=== PATIENT | female | born 1945 | race Caucasian/White ===

== ENCOUNTER 2019-01-16 10:24 | Observation (INO) ==
[2019-01-16] MEDS ORDERED: GLUCAGON 1 MG VIAL IM PRN (11:05)
[2019-01-16] MEDS ORDERED: DEXTROSE 50% 25 GM/50 ML VIAL IV PRN (11:05)
[2019-01-16] MEDS ORDERED: ONDANSETRON 4 MG/2 ML VIAL IV PRN (11:05)
[2019-01-16] MEDS ORDERED: ACETAMINOPHEN 325 MG TABLET PO PRN (11:05)
[2019-01-16] MEDS: SODIUM CHLORIDE 0.45% 1,000 ML IV SCH (12:01)
[2019-01-16] MEDS: OXYBUTYNIN 5 MG TABLET PO SCH ×2 (16:17→23:00)
[2019-01-16] MEDS: INSULIN LISPRO 100 UNIT/ML SUBCUT SCH (16:18)
[2019-01-16] MEDS: traMADol 50 MG TABLET PO PRN (19:53)
[2019-01-16] MEDS ORDERED: INSULIN NPH/REGULAR 70/30 100 UNIT/ML SUBCUT SCH (21:00)
[2019-01-16] MEDS: CARBIDOPA/LEVODOPA 25-100 MG TABLET PO SCH (22:58)
[2019-01-16] MEDS: MAGNESIUM CHLORIDE 64 MG TABLET PO SCH (22:58)
[2019-01-16] MEDS: LOSARTAN/HCTZ 50-12.5 MG TABLET PO SCH (22:58)
[2019-01-16] MEDS: DOCUSATE SODIUM 100 MG CAPSULE PO SCH (22:59)
[2019-01-16] MEDS: buPROPion SR 150 MG TABLET PO SCH (22:59)
[2019-01-16] MEDS: diphenhydrAMINE CAP 50 MG CAPSULE PO SCH (22:59)
[2019-01-16] MEDS: APIXABAN 5 MG TABLET PO SCH (22:59)
[2019-01-16] MEDS: CARVEDILOL 25 MG TABLET PO SCH (22:59)
[2019-01-16] MEDS: INSULIN GLARGINE 100 UNIT/ML SUBCUT SCH (23:09)
[2019-01-17 05:18] LABS: Basophils % 0.4 % (0.0-0.8); Eosinophils # 0.2 10*3/uL (0.0-0.87); Eosinophils % 3.3 % (0.00-10.9); Hematocrit 30.4 VOL% (35.7-47.0); Hemoglobin 9.8 GM/DL (12.0-16.0); Immature Granulocytes % 0.2 %; Immature Granulocytes Absolute 0.01 #; Lymphocytes # 0.6 10*3/uL (1.4-4.0); Lymphocytes % 12.3 % (21.3-54.2); Mean Corpuscular HGB Conc 32.2 GM/DL (32-36); Mean Corpuscular Volume 96.2 FL (87-102); Mean Platelet Volume 9.5 FL (9.6-12.0); Monocytes % 7.6 % (1.7-12.7); Neutrophils % 76.2 % (38.7-73.9); Platelet Count 168 T/CUMM (130-400); Red Blood Count 3.16 MC/CUMM (3.8-5.5); Red Cell Distribution Width 15.9 % (9.3-17.3); White Blood Count 5.1 T/CUMM (4-12)
[2019-01-17 05:46] LABS: Thyroid Stimulating Hormone 2.79 uIU/ml (0.358-3.74)
[2019-01-17 06:34] LABS: Alanine Aminotransferase < 6 U/L (13-56); Albumin 3.1 G/DL (3.4-5.0); Alkaline Phosphatase 77 U/L (45-117); Aspartate Amino Transferase 13 U/L (0-37); Blood Urea Nitrogen 18 MG/DL (7-18); Calcium 9.2 MG/DL (8.5-10.1); Glucose 112 MG/DL (74-106); Osmolality,Calculated 281.4 MOS/KG (273-304); Total Protein 6.3 G/DL (6.4-8.3)
[2019-01-17] MEDS: INSULIN LISPRO 100 UNIT/ML SUBCUT SCH (08:06)
[2019-01-17] MEDS: traMADol 50 MG TABLET PO PRN ×2 (08:37→21:50)
[2019-01-17] MEDS: APIXABAN 5 MG TABLET PO SCH ×2 (08:38→20:37)
[2019-01-17] MEDS: DOCUSATE SODIUM 100 MG CAPSULE PO SCH ×2 (08:38→20:37)
[2019-01-17] MEDS: LEVOTHYROXINE 88 MCG TABLET PO SCH (08:38)
[2019-01-17] MEDS: CARVEDILOL 25 MG TABLET PO SCH ×2 (08:38→20:38)
[2019-01-17] MEDS: FUROSEMIDE 40 MG TABLET PO SCH (08:39)
[2019-01-17] MEDS: PANTOPRAZOLE 40 MG TABLET PO SCH (08:39)
[2019-01-17] MEDS: OXYBUTYNIN 5 MG TABLET PO SCH ×3 (08:39→20:37)
[2019-01-17] MEDS: MAGNESIUM CHLORIDE 64 MG TABLET PO SCH ×2 (08:39→20:36)
[2019-01-17] MEDS: ASPIRIN EC 81 MG TABLET PO SCH (08:40)
[2019-01-17] MEDS: LOSARTAN/HCTZ 50-12.5 MG TABLET PO SCH ×2 (08:40→20:36)
[2019-01-17] MEDS: SODIUM CHLORIDE 0.45% 1,000 ML IV SCH (08:41)
[2019-01-17] MEDS: buPROPion SR 150 MG TABLET PO SCH ×2 (08:51→20:37)
[2019-01-17] MEDS: INSULIN REGULAR 100 UNIT/ML SUBCUT SCH ×3 (11:41→21:52)
[2019-01-17] MEDS ORDERED: MAGNESIUM SULF RIDER 2 GM in PREMIX 1 EACH IV ONE (12:31)
[2019-01-17 13:46] LABS: Apearance,Urine CLEAR (Clear); Bacteria,Urine Occasional /HPF (Few); Bilirubin,Urine Negative (Negative); Blood, Urine Negative (Negative); Glucose,Urine (UA) Negative (Negative); Ketones,Urine Negative (Negative); Nitrite,Urine Negative (Negative); Protein,Urine Negative; Squamous Epithelial Cell,Urine Occasional /HPF (0-10); Urine Color Straw (Yellow); Urine Specific Gravity 1.005 (1.001-1.035); Urine Urobilinogen < 2.0 EU/DL (0.2-1.0); WBC,Urine <1 /HPF (0-6)
[2019-01-17] MEDS: POTASSIUM CHLORIDE INJ 20 MEQ, MAGNESIUM SULF INJ 2 GM in SODIUM CHLORIDE 0.45% 1,000 ML IV SCH (15:20)
[2019-01-17] MEDS: CARBIDOPA/LEVODOPA 25-100 MG TABLET PO SCH (20:37)
[2019-01-17] MEDS: diphenhydrAMINE CAP 50 MG CAPSULE PO SCH (20:38)
[2019-01-17] MEDS: INSULIN GLARGINE 100 UNIT/ML SUBCUT SCH (21:26)
[2019-01-18] MEDS: POTASSIUM CHLORIDE INJ 20 MEQ, MAGNESIUM SULF INJ 2 GM in SODIUM CHLORIDE 0.45% 1,000 ML IV SCH ×2 (05:34→18:17)
[2019-01-18 05:57] LABS: Basophils % 0.9 % (0.0-0.8); Eosinophils # 0.2 10*3/uL (0.0-0.87); Eosinophils % 4.2 % (0.00-10.9); Hematocrit 34.6 VOL% (35.7-47.0); Hemoglobin 10.8 GM/DL (12.0-16.0); Immature Granulocytes % 0.4 %; Immature Granulocytes Absolute 0.02 #; Lymphocytes # 0.7 10*3/uL (1.4-4.0); Lymphocytes % 15.8 % (21.3-54.2); Mean Corpuscular HGB Conc 31.2 GM/DL (32-36); Mean Corpuscular Volume 96.9 FL (87-102); Mean Platelet Volume 9.4 FL (9.6-12.0); Monocytes % 6.8 % (1.7-12.7); Neutrophils % 71.9 % (38.7-73.9); Platelet Count 178 T/CUMM (130-400); Red Blood Count 3.57 MC/CUMM (3.8-5.5); Red Cell Distribution Width 15.9 % (9.3-17.3); White Blood Count 4.6 T/CUMM (4-12)
[2019-01-18 06:10] LABS: Alanine Aminotransferase < 6 U/L (13-56); Albumin 3.3 G/DL (3.4-5.0); Alkaline Phosphatase 83 U/L (45-117); Aspartate Amino Transferase 13 U/L (0-37); Blood Urea Nitrogen 17 MG/DL (7-18); Calcium 9.3 MG/DL (8.5-10.1); Glucose 102 MG/DL (74-106); Osmolality,Calculated 284.1 MOS/KG (273-304); Total Protein 6.8 G/DL (6.4-8.3)
[2019-01-18] MEDS: PANTOPRAZOLE 40 MG TABLET PO SCH (08:55)
[2019-01-18] MEDS: LEVOTHYROXINE 88 MCG TABLET PO SCH (08:55)
[2019-01-18] MEDS: ASPIRIN EC 81 MG TABLET PO SCH (08:55)
[2019-01-18] MEDS: FUROSEMIDE 40 MG TABLET PO SCH (08:55)
[2019-01-18] MEDS: APIXABAN 5 MG TABLET PO SCH ×2 (08:56→21:21)
[2019-01-18] MEDS: buPROPion SR 150 MG TABLET PO SCH ×2 (08:56→21:20)
[2019-01-18] MEDS: OXYBUTYNIN 5 MG TABLET PO SCH ×3 (08:56→21:20)
[2019-01-18] MEDS: CARVEDILOL 25 MG TABLET PO SCH ×2 (08:56→21:22)
[2019-01-18] MEDS: LOSARTAN/HCTZ 50-12.5 MG TABLET PO SCH ×2 (08:56→21:22)
[2019-01-18] MEDS: DOCUSATE SODIUM 100 MG CAPSULE PO SCH ×2 (08:56→21:21)
[2019-01-18] MEDS: INSULIN REGULAR 100 UNIT/ML SUBCUT SCH ×4 (10:10→23:32)
[2019-01-18] MEDS: CARBIDOPA/LEVODOPA 25-100 MG TABLET PO SCH (21:20)
[2019-01-18] MEDS: diphenhydrAMINE CAP 50 MG CAPSULE PO SCH (21:20)
[2019-01-18] MEDS: KETOCONAZOLE 2% CREAM 30 GM TUBE TOP SCH (21:22)
[2019-01-18] MEDS: NYSTATIN POWDER 15 GM BOTTLE TOP SCH (21:23)
[2019-01-18] MEDS: INSULIN GLARGINE 100 UNIT/ML SUBCUT SCH (21:33)
[2019-01-19 05:56] LABS: Basophils % 0.6 % (0.0-0.8); Eosinophils # 0.2 10*3/uL (0.0-0.87); Hematocrit 33.1 VOL% (35.7-47.0); Hemoglobin 10.4 GM/DL (12.0-16.0); Immature Granulocytes % 0.4 %; Immature Granulocytes Absolute 0.02 #; Lymphocytes # 0.6 10*3/uL (1.4-4.0); Lymphocytes % 11.1 % (21.3-54.2); Mean Corpuscular HGB Conc 31.4 GM/DL (32-36); Mean Corpuscular Volume 97.6 FL (87-102); Mean Platelet Volume 9.9 FL (9.6-12.0); Monocytes % 6.4 % (1.7-12.7); Neutrophils % 77.5 % (38.7-73.9); Platelet Count 139 T/CUMM (130-400); Red Blood Count 3.39 MC/CUMM (3.8-5.5); Red Cell Distribution Width 15.9 % (9.3-17.3)
[2019-01-19 06:37] LABS: Calcium 9.2 MG/DL (8.5-10.1)
[2019-01-19] MEDS ORDERED: SODIUM CHLOR 0.45% KCL 20 MEQ 20 MEQ/1,000 ML BAG IV SCH (09:00)
[2019-01-19] MEDS: INSULIN REGULAR 100 UNIT/ML SUBCUT SCH ×3 (09:32→16:42)
[2019-01-19] MEDS: KETOCONAZOLE 2% CREAM 30 GM TUBE TOP SCH (09:33)
[2019-01-19] MEDS: NYSTATIN POWDER 15 GM BOTTLE TOP SCH (09:33)
[2019-01-19] MEDS: CARVEDILOL 25 MG TABLET PO SCH (09:33)
[2019-01-19] MEDS: buPROPion SR 150 MG TABLET PO SCH (09:34)
[2019-01-19] MEDS: OXYBUTYNIN 5 MG TABLET PO SCH ×2 (09:34→15:00)
[2019-01-19] MEDS: LOSARTAN/HCTZ 50-12.5 MG TABLET PO SCH (09:34)
[2019-01-19] MEDS: FUROSEMIDE 40 MG TABLET PO SCH (09:34)
[2019-01-19] MEDS: APIXABAN 5 MG TABLET PO SCH (09:34)
[2019-01-19] MEDS: ASPIRIN EC 81 MG TABLET PO SCH (09:35)
[2019-01-19] MEDS: LEVOTHYROXINE 88 MCG TABLET PO SCH (09:35)
[2019-01-19] MEDS: DOCUSATE SODIUM 100 MG CAPSULE PO SCH (09:35)
[2019-01-19] MEDS: PANTOPRAZOLE 40 MG TABLET PO SCH (09:35)
[2019-01-19] MEDS: POTASSIUM CHLORIDE INJ 20 MEQ, MAGNESIUM SULF INJ 2 GM in SODIUM CHLORIDE 0.45% 1,000 ML IV SCH (09:43)
[2019-01-19 15:55] VITALS: BP 123/80
== END 2019-01-19 18:06 | disposition home or self-care (01) ==
LOC: EDBD → EDUNIT# → N.ED 10:24 → SUATTDRO 11:05 → INTOOBSV 11:05 → N.EDINP 11:05 → N.2E 11:45
PROVIDERS: ADMIT Family Medicine; ATTEND Family Medicine

== ENCOUNTER 2021-01-23 14:40 | Inpatient (IN) ==
[2021-01-23 15:45] LABS: Basophils % 0.2 % (0.0-0.8); Hematocrit 32.2 VOL% (35.7-47.0); Hemoglobin 9.7 GM/DL (12.0-16.0); Immature Granulocytes % 0.5 %; Immature Granulocytes Absolute 0.02 #; Lymphocytes # 0.4 10*3/uL (1.4-4.0); Lymphocytes % 9.5 % (21.3-54.2); Mean Corpuscular HGB Conc 30.1 GM/DL (32-36); Mean Platelet Volume 9.3 FL (9.6-12.0); Monocytes % 6.4 % (1.7-12.7); Neutrophils % 82.4 % (38.7-73.9); Platelet Count 150 T/CUMM (130-400); Red Blood Count 3.62 MC/CUMM (3.8-5.5); Red Cell Distribution Width 16.4 % (9.3-17.3); White Blood Count 4.1 T/CUMM (4-12)
[2021-01-23 16:12] LABS: Bilirubin,Urine Negative (Negative); Blood, Urine Negative (Negative); Glucose,Urine (UA) Negative (Negative); Hyaline Casts,Urine 3 /LPF (0-3); Ketones,Urine Negative (Negative); Mucus,Urine Occasional /LPF (Occasional); Nitrite,Urine Negative (Negative); Protein,Urine Negative; RBC,Urine <1 /HPF (0-4); Squamous Epithelial Cell,Urine Occasional /HPF (0-10); Urine Appearance CLEAR (Clear); Urine Color Yellow (Yellow); Urine Specific Gravity 1.019 (1.001-1.035)
[2021-01-23 16:12] LABS: Alanine Aminotransferase 18 U/L (13-56); Albumin 3.1 G/DL (3.4-5.0); Alkaline Phosphatase 75 U/L (45-117); Aspartate Amino Transferase 18 U/L (0-37); Bilirubin,Total < 0.39 MG/DL (0.20-1.00); Blood Urea Nitrogen 17 MG/DL (7-18); Calcium 8.3 MG/DL (8.5-10.1); Carbon Dioxide 33 MMOL/L (21-32); Estimated Glom Filtration Rate 58 ML/MIN; Glucose 104 MG/DL (74-106); Osmolality,Calculated 278.5 MOS/KG (273-304); Potassium 3.2 MMOL/L (3.5-5.1); Sodium 139 MMOL/L (136-145); Total Protein 6.9 G/DL (6.4-8.2)
[2021-01-23] MEDS ORDERED: ALBUTEROL/IPRATROPIUM 3 ML NEB RESP TX STA (17:06)
[2021-01-23] MEDS ORDERED: ONDANSETRON 4 MG/2 ML VIAL IV PRN (18:12)
[2021-01-23] MEDS ORDERED: ACETAMINOPHEN 325 MG TABLET PO PRN (18:12)
[2021-01-23] MEDS ORDERED: GLUCAGON 1 MG VIAL IM PRN ×2 (18:12)
[2021-01-23] MEDS ORDERED: DEXTROSE 50% 25 GM/50 ML VIAL IV PRN ×2 (18:12)
[2021-01-23] MEDS ORDERED: POTASSIUM CHLORIDE 20 MEQ TABLET PO ONE (18:17)
[2021-01-23] MEDS ORDERED: ENOXAPARIN 30 MG/0.3 ML SYRINGE SUBCUT SCH (18:30)
[2021-01-23] MEDS: INSULIN LISPRO 100 UNIT/ML SUBCUT SCH (23:00)
[2021-01-23] MEDS ORDERED: OLANZapine 5 MG TABLET PO SCH (23:00)
[2021-01-23] MEDS ORDERED: traZODone 50 MG TABLET PO SCH (23:00)
[2021-01-23] MEDS: ALBUTEROL/IPRATROPIUM 3 ML NEB RESP TX SCH ×2 (23:41→23:42)
[2021-01-23] MEDS: LORazepam 1 MG TABLET PO SCH (23:45)
[2021-01-24] MEDS: ALBUTEROL/IPRATROPIUM 3 ML NEB RESP TX SCH ×4 (00:07→23:33)
[2021-01-24 04:15] LABS: Basophils % 0.4 % (0.0-0.8); Eosinophils # 0.1 10*3/uL (0.0-0.87); Eosinophils % 1.3 % (0.00-10.9); Hematocrit 31.3 VOL% (35.7-47.0); Hemoglobin 9.4 GM/DL (12.0-16.0); Immature Granulocytes % 0.2 %; Immature Granulocytes Absolute 0.01 #; Lymphocytes # 0.6 10*3/uL (1.4-4.0); Lymphocytes % 13.3 % (21.3-54.2); Mean Corpuscular Volume 89.4 FL (87-102); Mean Platelet Volume 9.5 FL (9.6-12.0); Monocytes % 6.2 % (1.7-12.7); Neutrophils % 78.6 % (38.7-73.9); Platelet Count 145 T/CUMM (130-400); Red Cell Distribution Width 16.8 % (9.3-17.3); White Blood Count 4.5 T/CUMM (4-12)
[2021-01-24 04:45] LABS: Calcium 8.4 MG/DL (8.5-10.1)
[2021-01-24 04:53] LABS: Osmolality,Calculated 280.4 MOS/KG (273-304)
[2021-01-24] MEDS ORDERED: traMADol 50 MG TABLET PO PRN (08:25)
[2021-01-24] MEDS: INSULIN LISPRO 100 UNIT/ML SUBCUT SCH ×4 (09:17→21:02)
[2021-01-24] MEDS: LORazepam 1 MG TABLET PO SCH ×3 (11:38→21:02)
[2021-01-24] MEDS: ATORVASTATIN 80 MG TABLET PO SCH ×2 (11:39→15:47)
[2021-01-24] MEDS: LOSARTAN 50 MG TABLET PO SCH ×2 (11:39→15:46)
[2021-01-24] MEDS: APIXABAN 2.5 MG TABLET PO SCH ×3 (11:39→21:02)
[2021-01-24] MEDS: AZITHROMYCIN 250 MG TABLET PO ONE ×2 (11:39→15:47)
[2021-01-24] MEDS: METOPROLOL SUCCINATE XL 25 MG TABLET PO SCH ×3 (11:39→21:02)
[2021-01-24] MEDS: SODIUM CHLOR 0.45% KCL 20 MEQ 20 MEQ/1,000 ML BAG IV SCH (11:40)
[2021-01-24] MEDS: cefTRIAXone 1,000 MG in SODIUM CHLORIDE 0.9% 100 ML IV SCH (11:43)
[2021-01-24] MEDS: POTASSIUM CHLORIDE RIDER 10 MEQ/100 ML PREMIX IV SCH ×5 (12:55→21:00)
[2021-01-24] MEDS ORDERED: methylPREDNISolone ACETATE 80 MG/1 ML VIAL IM ONE (15:43)
[2021-01-24] MEDS: methylPREDNISolone SOD SUC 40 MG/1 ML VIAL IV SCH (21:01)
[2021-01-24] MEDS: BENZONATATE 100 MG CAPSULE PO PRN (21:01)
[2021-01-24] MEDS: OLANZapine 5 MG TABLET PO SCH (21:01)
[2021-01-24] MEDS: LATANOPROST 0.005% OPH SOLN 2.5 ML BOTTLE BOTH EYES SCH (21:02)
[2021-01-24] MEDS: hydroCHLOROthiazide 12.5 MG CAPSULE PO SCH (21:02)
[2021-01-24] MEDS: traZODone 50 MG TABLET PO SCH (21:02)
[2021-01-24] MEDS: CARBIDOPA/LEVODOPA 25-100 MG TABLET PO SCH (21:02)
[2021-01-24] MEDS ORDERED: HALOPERIDOL 5 MG/ML AMP IM ONE (22:20)
[2021-01-24] MEDS ORDERED: HALOPERIDOL 5 MG/ML AMP IV ONE (22:57)
[2021-01-25] MEDS: LORazepam 1 MG TABLET PO SCH ×4 (00:50→21:56)
[2021-01-25] MEDS: OLANZapine 5 MG TABLET PO SCH ×4 (00:51→21:56)
[2021-01-25] MEDS: LATANOPROST 0.005% OPH SOLN 2.5 ML BOTTLE BOTH EYES SCH ×2 (00:51→22:11)
[2021-01-25] MEDS: METOPROLOL SUCCINATE XL 25 MG TABLET PO SCH ×4 (00:51→21:59)
[2021-01-25] MEDS: APIXABAN 2.5 MG TABLET PO SCH ×4 (00:51→21:59)
[2021-01-25] MEDS: traZODone 50 MG TABLET PO SCH ×2 (00:51→21:59)
[2021-01-25] MEDS: CARBIDOPA/LEVODOPA 25-100 MG TABLET PO SCH ×2 (00:51→21:59)
[2021-01-25] MEDS: hydroCHLOROthiazide 12.5 MG CAPSULE PO SCH ×4 (00:51→21:59)
[2021-01-25] MEDS: POTASSIUM CHLORIDE RIDER 10 MEQ/100 ML PREMIX IV SCH (01:09)
[2021-01-25] MEDS: ALBUTEROL/IPRATROPIUM 3 ML NEB RESP TX SCH ×6 (03:30→20:53)
[2021-01-25 05:49] LABS: Basophils % 0.3 % (0.0-0.8); Hematocrit 31.1 VOL% (35.7-47.0); Hemoglobin 9.5 GM/DL (12.0-16.0); Immature Granulocytes % 1.3 %; Immature Granulocytes Absolute 0.05 #; Lymphocytes # 0.2 10*3/uL (1.4-4.0); Lymphocytes % 5.9 % (21.3-54.2); Mean Corpuscular HGB Conc 30.5 GM/DL (32-36); Mean Corpuscular Volume 88.6 FL (87-102); Mean Platelet Volume 10.1 FL (9.6-12.0); Monocytes % 2.3 % (1.7-12.7); Neutrophils % 90.2 % (38.7-73.9); Platelet Count 133 T/CUMM (130-400); Red Blood Count 3.51 MC/CUMM (3.8-5.5); Red Cell Distribution Width 16.4 % (9.3-17.3); White Blood Count 3.9 T/CUMM (4-12)
[2021-01-25] MEDS: LEVOTHYROXINE 88 MCG TABLET PO SCH (05:54)
[2021-01-25 06:05] LABS: Albumin 2.7 G/DL (3.4-5.0); Bilirubin,Total 0.4 MG/DL (0.20-1.00); Calcium 8.8 MG/DL (8.5-10.1); Osmolality,Calculated 270.2 MOS/KG (273-304); Potassium 4.4 MMOL/L (3.5-5.1); Total Protein 6.4 G/DL (6.4-8.2)
[2021-01-25 06:09] LABS: Ferritin 697.7 ng/ml (8-252)
[2021-01-25 07:22] LABS: Band Neutrophils 9 % (0-10); Lymphocytes 4 % (20-55); Nucleated Red Blood Cells 1 (0-5); Segmented Neutrophils 83 % (50-85); Total Cells Counted 100
[2021-01-25 07:23] LABS: Hypochromasia 1+; Microcytosis 1+; Ovalocytes Few; Platelet Estimate Adequate
[2021-01-25] MEDS ORDERED: MAGNESIUM SULF RIDER 2 GM/50 ML PREMIX IV ONE (09:00)
[2021-01-25] MEDS: cefTRIAXone 1,000 MG in SODIUM CHLORIDE 0.9% 100 ML IV SCH (10:10)
[2021-01-25] MEDS: INSULIN LISPRO 100 UNIT/ML SUBCUT SCH ×4 (10:15→22:11)
[2021-01-25] MEDS: methylPREDNISolone SOD SUC 40 MG/1 ML VIAL IV SCH ×2 (10:17→22:11)
[2021-01-25] MEDS: ATORVASTATIN 80 MG TABLET PO SCH ×2 (10:18→10:59)
[2021-01-25] MEDS: LOSARTAN 50 MG TABLET PO SCH ×2 (10:18→10:58)
[2021-01-25] MEDS: AZITHROMYCIN 250 MG TABLET PO SCH ×2 (10:20→10:59)
[2021-01-25] MEDS: SODIUM CHLOR 0.45% KCL 20 MEQ 20 MEQ/1,000 ML BAG IV SCH ×2 (19:22→19:25)
[2021-01-25] MEDS ORDERED: HALOPERIDOL 5 MG/ML AMP IM PRN (20:51)
[2021-01-25] MEDS: BENZONATATE 100 MG CAPSULE PO PRN (21:59)
[2021-01-26] MEDS: SODIUM CHLOR 0.45% KCL 20 MEQ 20 MEQ/1,000 ML BAG IV SCH ×4 (00:28→16:56)
[2021-01-26] MEDS: ALBUTEROL/IPRATROPIUM 3 ML NEB RESP TX SCH ×7 (00:59→23:20)
[2021-01-26 05:02] LABS: Basophils % 0.2 % (0.0-0.8); Hematocrit 30.1 VOL% (35.7-47.0); Hemoglobin 8.9 GM/DL (12.0-16.0); Immature Granulocytes % 1.5 %; Immature Granulocytes Absolute 0.07 #; Lymphocytes # 0.4 10*3/uL (1.4-4.0); Lymphocytes % 7.7 % (21.3-54.2); Mean Corpuscular HGB Conc 29.6 GM/DL (32-36); Mean Corpuscular Volume 88.5 FL (87-102); Mean Platelet Volume 9.6 FL (9.6-12.0); Monocytes % 2.4 % (1.7-12.7); Neutrophils % 88.2 % (38.7-73.9); Platelet Count 152 T/CUMM (130-400); White Blood Count 4.5 T/CUMM (4-12)
[2021-01-26 05:22] LABS: Hypochromasia 1+; Microcytosis 1+
[2021-01-26 05:23] LABS: Platelet Estimate Adequate
[2021-01-26 05:28] LABS: Alanine Aminotransferase < 9 U/L (13-56); Albumin 2.6 G/DL (3.4-5.0); Alkaline Phosphatase 60 U/L (45-117); Aspartate Amino Transferase 14 U/L (0-37); Blood Urea Nitrogen 11 MG/DL (7-18); Calcium 8.4 MG/DL (8.5-10.1); Carbon Dioxide 34 MMOL/L (21-32); Estimated Glom Filtration Rate 99 ML/MIN; Glucose 136 MG/DL (74-106); Osmolality,Calculated 279.4 MOS/KG (273-304); Potassium 4.2 MMOL/L (3.5-5.1); Sodium 140 MMOL/L (136-145); Total Protein 6.2 G/DL (6.4-8.2)
[2021-01-26] MEDS: ATORVASTATIN 80 MG TABLET PO SCH ×2 (07:48→10:09)
[2021-01-26] MEDS: OLANZapine 5 MG TABLET PO SCH ×4 (07:48→21:10)
[2021-01-26] MEDS: APIXABAN 2.5 MG TABLET PO SCH ×4 (07:49→21:09)
[2021-01-26] MEDS: METOPROLOL SUCCINATE XL 25 MG TABLET PO SCH ×4 (07:49→21:11)
[2021-01-26] MEDS: LOSARTAN 50 MG TABLET PO SCH ×2 (07:49→10:08)
[2021-01-26] MEDS: BENZONATATE 100 MG CAPSULE PO PRN (07:49)
[2021-01-26] MEDS: LEVOTHYROXINE 88 MCG TABLET PO SCH (07:49)
[2021-01-26] MEDS: ASPIRIN EC 81 MG TABLET PO SCH ×2 (07:50→12:45)
[2021-01-26] MEDS: hydroCHLOROthiazide 12.5 MG CAPSULE PO SCH ×4 (07:50→21:09)
[2021-01-26] MEDS: AZITHROMYCIN 250 MG TABLET PO SCH ×2 (07:50→10:10)
[2021-01-26] MEDS: methylPREDNISolone SOD SUC 40 MG/1 ML VIAL IV SCH ×2 (07:52→19:59)
[2021-01-26] MEDS: cefTRIAXone 1,000 MG in SODIUM CHLORIDE 0.9% 100 ML IV SCH ×2 (07:52→10:09)
[2021-01-26] MEDS: INSULIN LISPRO 100 UNIT/ML SUBCUT SCH ×4 (08:47→21:27)
[2021-01-26] MEDS: SERTRALINE 100 MG TABLET PO SCH (12:40)
[2021-01-26] MEDS: glipiZIDE 5 MG TABLET PO SCH (12:50)
[2021-01-26] MEDS: MENTHOL/ZINC OXIDE OINT 71 GM JAR TOP SCH ×2 (15:44→20:50)
[2021-01-26] MEDS: traZODone 50 MG TABLET PO SCH ×2 (19:52→21:08)
[2021-01-26] MEDS: CARBIDOPA/LEVODOPA 25-100 MG TABLET PO SCH ×2 (19:54→21:11)
[2021-01-26] MEDS: LATANOPROST 0.005% OPH SOLN 2.5 ML BOTTLE BOTH EYES SCH (20:04)
[2021-01-27] MEDS: ALBUTEROL/IPRATROPIUM 3 ML NEB RESP TX SCH ×6 (02:30→22:40)
[2021-01-27] MEDS: SODIUM CHLOR 0.45% KCL 20 MEQ 20 MEQ/1,000 ML BAG IV SCH ×2 (03:56→18:39)
[2021-01-27 05:18] LABS: Basophils % 0.4 % (0.0-0.8); Hematocrit 29.7 VOL% (35.7-47.0); Hemoglobin 8.9 GM/DL (12.0-16.0); Immature Granulocytes % 2.8 %; Immature Granulocytes Absolute 0.14 #; Lymphocytes # 0.4 10*3/uL (1.4-4.0); Lymphocytes % 7.5 % (21.3-54.2); Mean Platelet Volume 9.8 FL (9.6-12.0); Monocytes % 3.6 % (1.7-12.7); Neutrophils % 85.7 % (38.7-73.9); Platelet Count 147 T/CUMM (130-400); Red Cell Distribution Width 15.9 % (9.3-17.3); White Blood Count 5.1 T/CUMM (4-12)
[2021-01-27] MEDS: LEVOTHYROXINE 88 MCG TABLET PO SCH (05:40)
[2021-01-27 05:43] LABS: Calcium 8.6 MG/DL (8.5-10.1); Osmolality,Calculated 276.8 MOS/KG (273-304); Potassium 4.4 MMOL/L (3.5-5.1)
[2021-01-27] MEDS: BENZONATATE 100 MG CAPSULE PO PRN (05:43)
[2021-01-27] MEDS: methylPREDNISolone SOD SUC 40 MG/1 ML VIAL IV SCH ×2 (09:43→21:00)
[2021-01-27] MEDS: glipiZIDE 5 MG TABLET PO SCH (09:43)
[2021-01-27] MEDS: hydroCHLOROthiazide 12.5 MG CAPSULE PO SCH ×2 (09:44→21:01)
[2021-01-27] MEDS: LOSARTAN 50 MG TABLET PO SCH (09:44)
[2021-01-27] MEDS: ATORVASTATIN 80 MG TABLET PO SCH (09:44)
[2021-01-27] MEDS: METOPROLOL SUCCINATE XL 25 MG TABLET PO SCH ×2 (09:44→21:02)
[2021-01-27] MEDS: SERTRALINE 100 MG TABLET PO SCH (09:44)
[2021-01-27] MEDS: OLANZapine 5 MG TABLET PO SCH ×2 (09:44→21:05)
[2021-01-27] MEDS: AZITHROMYCIN 250 MG TABLET PO SCH (09:45)
[2021-01-27] MEDS: INSULIN LISPRO 100 UNIT/ML SUBCUT SCH ×4 (09:45→21:17)
[2021-01-27] MEDS: cefTRIAXone 1,000 MG in SODIUM CHLORIDE 0.9% 100 ML IV SCH (09:45)
[2021-01-27] MEDS: APIXABAN 2.5 MG TABLET PO SCH ×2 (09:45→21:02)
[2021-01-27] MEDS: MENTHOL/ZINC OXIDE OINT 71 GM JAR TOP SCH ×2 (14:21→21:05)
[2021-01-27] MEDS: traZODone 50 MG TABLET PO SCH (21:01)
[2021-01-27] MEDS: CARBIDOPA/LEVODOPA 25-100 MG TABLET PO SCH (21:02)
[2021-01-27] MEDS: LATANOPROST 0.005% OPH SOLN 2.5 ML BOTTLE BOTH EYES SCH (21:06)
[2021-01-28] MEDS: ALBUTEROL/IPRATROPIUM 3 ML NEB RESP TX SCH ×6 (02:40→23:48)
[2021-01-28 05:51] LABS: Basophils % 0.5 % (0.0-0.8); Hematocrit 31.5 VOL% (35.7-47.0); Hemoglobin 9.4 GM/DL (12.0-16.0); Immature Granulocytes % 5.7 %; Immature Granulocytes Absolute 0.33 #; Lymphocytes # 0.4 10*3/uL (1.4-4.0); Lymphocytes % 7.6 % (21.3-54.2); Mean Corpuscular HGB Conc 29.8 GM/DL (32-36); Mean Corpuscular Volume 90.5 FL (87-102); Mean Platelet Volume 9.5 FL (9.6-12.0); Neutrophils % 81.2 % (38.7-73.9); Platelet Count 158 T/CUMM (130-400); Red Blood Count 3.48 MC/CUMM (3.8-5.5); Red Cell Distribution Width 15.9 % (9.3-17.3); White Blood Count 5.8 T/CUMM (4-12)
[2021-01-28 06:12] LABS: Calcium 8.6 MG/DL (8.5-10.1); Osmolality,Calculated 281.4 MOS/KG (273-304); Potassium 4.6 MMOL/L (3.5-5.1)
[2021-01-28 06:18] LABS: Hypochromasia 1+; Lymphocytes 11 % (20-55); Microcytosis 1+; Ovalocytes Slight; Platelet Estimate Adequate; Segmented Neutrophils 83 % (50-85); Total Cells Counted 100
[2021-01-28] MEDS: LEVOTHYROXINE 88 MCG TABLET PO SCH (06:18)
[2021-01-28] MEDS: SODIUM CHLOR 0.45% KCL 20 MEQ 20 MEQ/1,000 ML BAG IV SCH ×2 (08:31→23:00)
[2021-01-28] MEDS: cefTRIAXone 1,000 MG in SODIUM CHLORIDE 0.9% 100 ML IV SCH (10:14)
[2021-01-28] MEDS: hydroCHLOROthiazide 12.5 MG CAPSULE PO SCH ×2 (10:16→20:55)
[2021-01-28] MEDS: OLANZapine 5 MG TABLET PO SCH ×2 (10:16→20:56)
[2021-01-28] MEDS: METOPROLOL SUCCINATE XL 25 MG TABLET PO SCH ×2 (10:16→20:56)
[2021-01-28] MEDS: methylPREDNISolone SOD SUC 40 MG/1 ML VIAL IV SCH ×2 (10:17→20:57)
[2021-01-28] MEDS: LOSARTAN 50 MG TABLET PO SCH (10:17)
[2021-01-28] MEDS: APIXABAN 2.5 MG TABLET PO SCH ×2 (10:17→20:56)
[2021-01-28] MEDS: AZITHROMYCIN 250 MG TABLET PO SCH (10:17)
[2021-01-28] MEDS: MENTHOL/ZINC OXIDE OINT 71 GM JAR TOP SCH ×2 (10:18→22:05)
[2021-01-28] MEDS: INSULIN LISPRO 100 UNIT/ML SUBCUT SCH ×4 (10:18→20:55)
[2021-01-28] MEDS: glipiZIDE 5 MG TABLET PO SCH (10:19)
[2021-01-28] MEDS: ATORVASTATIN 80 MG TABLET PO SCH (10:22)
[2021-01-28] MEDS: SERTRALINE 100 MG TABLET PO SCH (10:58)
[2021-01-28] MEDS: traZODone 50 MG TABLET PO SCH (20:56)
[2021-01-28] MEDS: CARBIDOPA/LEVODOPA 25-100 MG TABLET PO SCH (20:56)
[2021-01-28] MEDS: LATANOPROST 0.005% OPH SOLN 2.5 ML BOTTLE BOTH EYES SCH (22:05)
[2021-01-29] MEDS: ALBUTEROL/IPRATROPIUM 3 ML NEB RESP TX SCH ×4 (03:43→15:46)
[2021-01-29] MEDS: LEVOTHYROXINE 88 MCG TABLET PO SCH (06:20)
[2021-01-29] MEDS: cefTRIAXone 1,000 MG in SODIUM CHLORIDE 0.9% 100 ML IV SCH (09:20)
[2021-01-29] MEDS: LOSARTAN 50 MG TABLET PO SCH (09:20)
[2021-01-29] MEDS: ASPIRIN EC 81 MG TABLET PO SCH (09:20)
[2021-01-29] MEDS: MENTHOL/ZINC OXIDE OINT 71 GM JAR TOP SCH (09:20)
[2021-01-29] MEDS: ATORVASTATIN 80 MG TABLET PO SCH (09:20)
[2021-01-29] MEDS: hydroCHLOROthiazide 12.5 MG CAPSULE PO SCH (09:20)
[2021-01-29] MEDS: OLANZapine 5 MG TABLET PO SCH (09:20)
[2021-01-29] MEDS: METOPROLOL SUCCINATE XL 25 MG TABLET PO SCH (09:20)
[2021-01-29] MEDS: APIXABAN 2.5 MG TABLET PO SCH (09:20)
[2021-01-29] MEDS: SERTRALINE 100 MG TABLET PO SCH (09:20)
[2021-01-29] MEDS: glipiZIDE 5 MG TABLET PO SCH (09:20)
[2021-01-29] MEDS: INSULIN LISPRO 100 UNIT/ML SUBCUT SCH ×3 (10:01→18:02)
[2021-01-29] MEDS: methylPREDNISolone SOD SUC 40 MG/1 ML VIAL IV SCH (10:08)
[2021-01-29 16:42] VITALS: BP 140/74
[2021-01-29] MEDS: SODIUM CHLOR 0.45% KCL 20 MEQ 20 MEQ/1,000 ML BAG IV SCH (18:01)
== END 2021-01-29 18:32 | DRG 178 ==
LOC: EDUNIT# → EDBD → N.ED 14:40 → N.EDINP 14:40 → SUATTDRO 18:12 → N.EDINP 01-24 09:30 → N.5E 01-24 09:47
PROVIDERS: ADMIT Internal Medicine; ATTEND Family Medicine